=== PATIENT | male | born 2000 | race African-American/Black ===

== ENCOUNTER 2020-07-17 15:15 | Outpatient (REF) | payer MEDICAID, SELFPAY | END 2020-07-17 15:16 | disposition home or self-care (01) | LOC: HO.LABR 15:15 | PROVIDERS: PCP Pediatrics; Visit Provider Internal Medicine | DX: Z20.828 Contact with and (suspected) exposure to other viral communicable diseases (principal) | CPT/HCPCS: 87635 ==